=== PATIENT | male | born 1960 | race Caucasian/White ===

== ENCOUNTER 2020-01-01 08:46 | Emergency (ER) | payer SELFPAY ==
[~2020-01-01] VITALS: Ht 177.8 cm; Wt 86.4 kg
[2020-01-01 08:53] VITALS: Ht 177.8 cm; Wt 86.4 kg
[2020-01-01] MEDS ORDERED: LIPITOR20 MG (08:58)
[2020-01-01] MEDS ORDERED: COREG6.25 MG (08:58)
[2020-01-01] MEDS ORDERED: ASPIRIN81 MG (08:58)
[2020-01-01] MEDS ORDERED: FUROSEMIDE40 MG (08:59)
[2020-01-01] MEDS ORDERED: K-TAB10 MEQ (08:59)
[2020-01-01] MEDS ORDERED: GLUCOTROL 5 MG T5 MG (08:59)
[2020-01-01] MEDS ORDERED: LISINOPRIL2.5 MG (08:59)
[2020-01-01 09:43] LABS: BASOPHILS 0.3 % (0-2); EOSINOPHILS 0.4 % (0-7); HEMATOCRIT 44.4 % (42.0-54.0); HEMOGLOBIN 14.7 g/dL (13.5-17.5); IMMATURE GRANULOCYTES 0.4 % (0-5); LYMPHOCYTES 13.2 % (15-50); MCH 29.3 pg (26.0-34.0); MCHC 33.1 g/dL (31.0-37.0); MCV 88.6 fL (80.0-100.0); MEAN PLATELET VOLUME 9.8 fL (7.4-10.4); MONOCYTES 5.5 % (2-11); NEUTROPHILS 80.2 % (40-80); PLATELET COUNT 177 10x3/uL (130-400); RBC 5.01 10x6/uL (4.20-6.10); RDW 13.2 % (11.5-14.5); WBC 7.3 10x3/uL (4.8-10.8)
[2020-01-01 09:52] LABS: BILIRUBIN NEGATIVE (NEGATIVE); CALC OSMOLALITY 291 mosm/kg (275-300); CALCIUM 9.1 mg/dL (8.5-10.1); CARBON DIOXIDE 25.9 mmol/L (21.0-32.0); CHLORIDE - SERUM 101 mmol/L (98-107); GLUCOSE 374 mg/dL (74-106); KETONE NEGATIVE (NEGATIVE); NITRITE NEGATIVE (NEGATIVE); POTASSIUM - SERUM 4.4 mmol/L (3.5-5.1); SODIUM 137 mmol/L (136-145); UREA NITROGEN 21 mg/dL (7-18); UROBILINOGEN NORMAL mg/dL (< 2); eGFR NON AFRICAN AMERICAN 81 mL/min (90-120)
[2020-01-01 09:55] LABS: BACTERIA NONE SEEN HPF (NONE SEEN); EPITHELIAL CELLS RARE /hpf (0-5); WHITE CELLS - URINE RARE HPF (0-1)
[2020-01-01 10:13] LABS: ALBUMIN 3.4 g/dL (3.4-5.0); ALKALINE PHOSPHATASE 124 U/L (30-120); ALT (SGPT) 41 U/L (10-68); AMYLASE - SERUM 37 U/L (25-115); BILIRUBIN - TOTAL 1.49 mg/dL (0.2-1.3); LIPASE 149 U/L (73-393); PROTEIN - SERUM 6.5 g/dL (6.4-8.2); TROPONIN-I 0.059 ng/mL (0.000-0.060)
[2020-01-01 11:21] VITALS: BP 132/92
[2020-01-01] MEDS ORDERED: ALDACTONE50 MG PO (12:29)
[2020-01-01] MEDS ORDERED: BUMEX2 MG PO (12:29)
[2020-01-01] MEDS ORDERED: GLUCOTROL 5 MG T5 MG PO (12:29)
[2020-01-01] MEDS ORDERED: LISINOPRIL20 MG PO (12:29)
[2020-01-01] MEDS ORDERED: GLUCOPHAGE500 MG PO (12:29)
== END 2020-01-01 12:54 | disposition home or self-care (01) ==
LOC: D.ER 08:46
PROVIDERS: Emergency Medicine
DX: R18.8 Other ascites (principal); E11.65 Type 2 diabetes mellitus with hyperglycemia; R79.89 Other specified abnormal findings of blood chemistry; I11.0 Hypertensive heart disease with heart failure; I50.9 Heart failure, unspecified; Z79.84 Long term (current) use of oral hypoglycemic drugs; Z72.0 Tobacco use; R10.9 Unspecified abdominal pain

== ENCOUNTER 2020-07-29 11:49 | Inpatient (IN) | payer BC ==
[~2020-07-29] VITALS: Ht 177.8 cm; Wt 83.9 kg
[~2020-07-29 11:49] MED LIST: ALDACTONE50 MG PO; ASPIRIN81 MG; BUMEX2 MG PO; COREG6.25 MG; FUROSEMIDE40 MG; GLUCOPHAGE500 MG PO; GLUCOTROL 5 MG T5 MG; GLUCOTROL 5 MG T5 MG PO; K-TAB10 MEQ; LIPITOR20 MG; LISINOPRIL2.5 MG; LISINOPRIL20 MG PO
--- NOTE | 2020-07-29 12:15 | NUR ---
NTG SL NOT GIVEN. PT DENIES CHEST PAIN. BP WNL.
[2020-07-29 12:30] VITALS: BP 124/91
[2020-07-29 12:47] LABS: ALBUMIN 3.3 g/dL (3.4-5.0); ALKALINE PHOSPHATASE 156 U/L (30-120); ALT (SGPT) 54 U/L (10-68); BILIRUBIN - TOTAL 1.34 mg/dL (0.2-1.3); C-REACTIVE PROTEIN < 0.2 mg/dL (0.0-0.9); CALC OSMOLALITY 294 mosm/kg (275-300); CALCIUM 9.4 mg/dL (8.5-10.1); CARBON DIOXIDE 28.9 mmol/L (21.0-32.0); CHLORIDE - SERUM 99 mmol/L (98-107); CREATININE - SERUM 1.2 mg/dL (0.6-1.3); LIPASE 117 U/L (73-393); POTASSIUM - SERUM 4.7 mmol/L (3.5-5.1); PRO BNP 7866 pg/mL (0-125); PROTEIN - SERUM 6.4 g/dL (6.4-8.2); SODIUM 136 mmol/L (136-145); THYROID STIMULATING HORMONE 0.21 uIU/mL (0.36-3.74); UREA NITROGEN 25 mg/dL (7-18); eGFR NON AFRICAN AMERICAN 66 mL/min (90-120)
[2020-07-29 12:50] LABS: GLUCOSE 439 mg/dL (74-106); TROPONIN-I 0.066 ng/mL (0.000-0.060)
--- NOTE | 2020-07-29 12:56 | NUR ---
URINE SPECIMEN TO LAB.
[2020-07-29 13:26] LABS: BILIRUBIN NEGATIVE (NEGATIVE); KETONE NEGATIVE (NEGATIVE); NITRITE NEGATIVE (NEGATIVE); UROBILINOGEN NORMAL mg/dL (< 2)
[2020-07-29 13:27] LABS: BACTERIA FEW HPF (NONE SEEN); SQUAMOUS EPITHELIAL 0-5 HPF (0-4); WHITE CELLS - URINE RARE HPF (0-1)
[2020-07-29 13:54] LABS: BASOPHILS 0.1 % (0-2); EOSINOPHILS 0.4 % (0-7); HEMATOCRIT 44.2 % (42.0-54.0); HEMOGLOBIN 14.7 g/dL (13.5-17.5); IMMATURE GRANULOCYTES 0.3 % (0-5); LYMPHOCYTE ABS# 0.87 10x3/uL (1.32-3.57); LYMPHOCYTES 12.3 % (15-50); MCH 29.5 pg (26.0-34.0); MCHC 33.3 g/dL (31.0-37.0); MCV 88.8 fL (80.0-100.0); MEAN PLATELET VOLUME 10.2 fL (7.4-10.4); MONOCYTES 6.2 % (2-11); NEUTROPHIL ABS# 5.72 10x3/uL (1.78-5.38); NEUTROPHILS 80.7 % (40-80); PLATELET COUNT 211 10x3/uL (130-400); RBC 4.98 10x6/uL (4.20-6.10); RDW 13.6 % (11.5-14.5); WBC 7.1 10x3/uL (4.8-10.8)
[2020-07-29 14:40] VITALS: BP 116/74; BMI 26.6
--- NOTE | 2020-07-29 15:00 | NUR ---
PT ARRIVED VIA WHEELCHAIR AT THIS TIME TO RM 2121. PT AMBULATORY TO BED, RR EVEN NON LABORED, O2 IN PLACE AT 2L NEEDED. PT AWAKE AND ALERT, ANSWERS QUUESTIONS APPROP. PT ORIENTED TO ROOM, CALL LIGHT, BATHROOM. PT STATES UNDERSTANDING, DENIES ANY QUESTIONS. HOME MED LIST REVIEWED, ALTHOUGHT PT STATES HE HAS NOT TAKEN MEDICATIONS SINCE FEBRUARY OF 2020. NO NEEDS VOICED BY PT. CLWR.
[2020-07-29 15:25] LABS: CKMB 5.7 U/L (0.0-3.6); CREATINE KINASE 109 UL (21-232); TROPONIN-I 0.055 ng/mL (0.000-0.060)
--- NOTE | 2020-07-29 19:22 | NUR ---
RECIEVED LAYING IN BED WITH HOB ELEVATED. ALERT ANAD ORIENTED X4. UP AD ROSEANN TO B/R. TELEMETRY IN PLACE. DENIES ANY NEEDS AT THIS TIME.
[2020-07-29 20:46] LABS: CKMB 4.2 U/L (0.0-3.6); CREATINE KINASE 81 UL (21-232)
[2020-07-29 20:48] LABS: TROPONIN-I 0.075 ng/mL (0.000-0.060)
[2020-07-29 21:00] VITALS: BP 104/70
[2020-07-30] VITALS: BP 112/81
[2020-07-30 02:51] LABS: BASOPHILS 0.6 % (0-2); EOSINOPHILS 1.3 % (0-7); HEMATOCRIT 40.7 % (42.0-54.0); HEMOGLOBIN 13.5 g/dL (13.5-17.5); MCH 28.9 pg (26.0-34.0); MCHC 33.2 g/dL (31.0-37.0); MCV 87.2 fL (80.0-100.0); MEAN PLATELET VOLUME 7.3 fL (7.4-10.4); MONOCYTES 7.7 % (2-11); NEUTROPHILS 72.4 % (40-80); PLATELET COUNT 199 10x3/uL (130-400); RBC 4.66 10x6/uL (4.20-6.10); RDW 13.9 % (11.5-14.5)
[2020-07-30 02:54] LABS: WBC 5.1 10x3/uL (4.8-10.8)
[2020-07-30 03:24] LABS: ALBUMIN 2.9 g/dL (3.4-5.0); ALKALINE PHOSPHATASE 124 U/L (30-120); ALT (SGPT) 45 U/L (10-68); BILIRUBIN - TOTAL 0.83 mg/dL (0.2-1.3); CALCIUM 8.2 mg/dL (8.5-10.1); CARBON DIOXIDE 29.8 mmol/L (21.0-32.0); CHLORIDE - SERUM 99 mmol/L (98-107); CKMB 3.4 U/L (0.0-3.6); CREATINE KINASE 73 UL (21-232); CREATININE - SERUM 1.2 mg/dL (0.6-1.3); MAGNESIUM - SERUM 1.7 mg/dL (1.8-2.4); PROTEIN - SERUM 6.1 g/dL (6.4-8.2); SODIUM 135 mmol/L (136-145); TROPONIN-I 0.057 ng/mL (0.000-0.060); UREA NITROGEN 22 mg/dL (7-18); eGFR NON AFRICAN AMERICAN 66 mL/min (90-120)
[2020-07-30 03:25] LABS: CALC OSMOLALITY 278 mosm/kg (275-300); GLUCOSE 211 mg/dL (74-106); POTASSIUM - SERUM 3.8 mmol/L (3.5-5.1)
[2020-07-30 04:00] VITALS: BP 101/68
[2020-07-30 08:00] VITALS: BP 105/72
--- NOTE | 2020-07-30 08:09 | NUR ---
PT LYING IN BED WITH HOB RAISED EATING BREAKFAST TRAY. PT AWAKE AND ALERT, RR EVEN NON LABORED, O2 IN PLACE VIA NC. PT ANSWERS QUESTIONS APPROP. NO PAIN REPORTED. AM MEDS GIVEN PER EMAR. TRACE EDEMA NOTED TO BLE, IMRPOVEMENT NOTED FROM YESTERDAY. PT DENIES ANY NEEDS AT THIS TIME. CLWR.
--- NOTE | 2020-07-30 12:46 | NUR ---
TELE D/C'D PER MD ORDER. PT REQUEST SET UP FOR SHOWER. BEDSPREAD CUTTER GAVE PT TOWELS AND COVERED IV. PT INDEPENDENT FOR SELF CARE. NO NEEDS VOICED. CLWR.
[2020-07-30 13:29] VITALS: Ht 177.8 cm; Wt 83.9 kg
[2020-07-30 16:00] VITALS: BP 170/79
--- NOTE | 2020-07-30 19:34 | NUR ---
RECIEVED UP IN BED WITH EYES CLOSED. AROUSES TO VERBAL STIMULI. ALERT AND ORIENTED X4. UP AD ROSEANN TO B/R. DENIES ANY NEEDS AT THIS TIME.
[2020-07-30 21:00] VITALS: BP 106/70
[2020-07-31] VITALS: BP 107/76
[2020-07-31 04:00] VITALS: BP 127/88
[2020-07-31 06:20] LABS: HEMOGLOBIN 14.2 g/dL (13.5-17.5); LYMPHOCYTES 17.8 % (15-50); MCH 28.9 pg (26.0-34.0); MCV 87.5 fL (80.0-100.0); MEAN PLATELET VOLUME 7.5 fL (7.4-10.4); MONOCYTES 10.4 % (2-11); NEUTROPHILS 69.8 % (40-80); PLATELET COUNT 214 10x3/uL (130-400); RBC 4.92 10x6/uL (4.20-6.10); RDW 13.7 % (11.5-14.5); WBC 5.3 10x3/uL (4.8-10.8)
[2020-07-31 06:38] LABS: ALBUMIN 2.9 g/dL (3.4-5.0); ANION GAP 10.5 mmol/L (8-16); BILIRUBIN - TOTAL 0.84 mg/dL (0.2-1.3); CALCIUM 8.7 mg/dL (8.5-10.1); CARBON DIOXIDE 30.3 mmol/L (21.0-32.0); CREATININE - SERUM 1.2 mg/dL (0.6-1.3); MAGNESIUM - SERUM 1.9 mg/dL (1.8-2.4); POTASSIUM - SERUM 3.8 mmol/L (3.5-5.1); PROTEIN - SERUM 5.8 g/dL (6.4-8.2)
[2020-07-31 08:40] VITALS: BP 120/82
--- NOTE | 2020-07-31 10:40 | NUR ---
DISCUSSED WITH PT REGARDING DISCHARGE. HE STATES HE WILL BE HIS OWN RIDE. WALKING TO VENDING FOR SNACK AT PRESENT.
--- NOTE | 2020-07-31 12:51 | NUR ---
PT BEING DISCHARGED. IV OUT, PAPERS SIGNED. DRIVING SELF HOME.
--- NOTE | 2020-07-31 14:10 | MORECARE ---
CASE MANAGEMENT DISCHARGE SUMMARY PATIENT: JULIANA CROWDER UNIT: [id number] ADM DATE: 07/29/20 AGE: 60 : 62 SEX: M ROOM/BED: D.2120 AUTHOR: SHEILA SANABRIA PHYSICIAN: REFERRING PHYSICIAN: KYUNG OLIVERA MD DATE OF SERVICE: 07/31/20 Case Management Discharge Planning Summary DCP REVIEW SUMMARY ANTICIPATED D/C DATE: 07/31/2020 EXPECTED LOS : 2 CASE STATUS: DCP Initiated INITIAL REVIEW: 07/29/2020 INITIAL REVIEWER: Jeniffer Salcedo FINAL DISCHARGE DISPOSITION: 01 : Home or Self Care (Routine Discharge) FINAL REVIEWER: FINAL REVIEW DATE: DCP Focus Questions & Answers DCP Screen QUESTION: ANSWER High Risk Factors: : None Walking limitation: Patient stated self rated walking limitation present? : No Age: : 45 - 64 Prior living environment: : Lives with others Disability ranking: : Grade 1: No significant disability DCP Evaluation QUESTION: ANSWER Patient's ability to cope with chronic illness : d. No chronic illness Would patient like to participate in any Care Coordination programs (if applicable): : Not applicable Mental health screen: : No mental health history DCP Re-evaluation QUESTION: ANSWER Would patient like to participate in any Care Coordination programs (if applicable): : Not applicable PATIENT: JULIANA CROWDER ENCOUNTER: [id number] MEDICAL RECORD#: [id number] ADMISSION DATE: 07/29/2020 DISCHARGE DATE: 07/31/2020 ATTENDING MD: KYUNG HOWELL : AGE: 60 MARITAL STATUS: S DC PLAN ID: [id number] FACILITY: [facility] PRINTED ON: 07/31/20 14:10 CT All edits/amendments must be made on the electronic document DICTATION DATE: 07/31/201409 PROFILER HAND: DM 07/31/20 141 RPT#: [id number] DC DATE:07/31/20 STATUS: DIS IN [facility] [address] [place] [address] END OF REPORT
--- NOTE | 2020-07-31 14:24 | MORECARE ---
CASE MANAGEMENT DISCHARGE SUMMARY PATIENT: JULIANA CROWDER UNIT: [id number] ADM DATE: 07/29/20 AGE: 60 : 62 SEX: M ROOM/BED: D.2123 AUTHOR: ELLY,DOC PHYSICIAN: REFERRING PHYSICIAN: KYUNG OLIVERA MD DATE OF SERVICE: 07/31/20 Case Management Discharge Planning Summary COMMENTS ENTERED DATE: 07/31/20 14:11 CT COMMENT TYPE: Discharge Planning REVIEWER: Jeniffer Salcedo CM met with patient to complete discharge planning assessment and offer availability of needed services. Patient states that he lives independently at home with his son prior to admission. Patient verified that his home environment is safe and has electricity and running water. Patient denies need for transportation and states that he does have funds for services and medications if needed. PCP is Dr. Perdomo and patient uses [facility]. CM offered and discussed home health, rehab services, and need for any medical equipment. Patient did not express need for offered services at this time. Patient verbalized understanding of signed form, DOM signed for refusal of additional services or needs at this time, and placed on chart. DCP REVIEW SUMMARY ANTICIPATED D/C DATE: 07/31/2020 EXPECTED LOS : 2 CASE STATUS: DCP Initiated INITIAL REVIEW: 07/29/2020 INITIAL REVIEWER: Jeniffer Salcedo FINAL DISCHARGE DISPOSITION: 01 : Home or Self Care (Routine Discharge) FINAL REVIEWER: FINAL REVIEW DATE: [facility] Focus Questions & Answers DCP Screen QUESTION: ANSWER High Risk Factors: : None Walking limitation: Patient stated self rated walking limitation present? : No Age: : 45 - 64 Prior living environment: : Lives with others Disability ranking: : Grade 1: No significant disability DCP Evaluation QUESTION: ANSWER Patient and/or caregiver agree upon recommended discharge plan? : Yes Family / Caregiver's ability to cope with chronic illness: : a. Adequate (ability to meet patient's medical needs, ensures patient attends medical appts.) Patient's current cognitive status: : *Oriented to person, place, situation, time and present Patient's ability to cope with chronic illness : a. Adequate (0-3 ED visits in 6 mos., adequate financial resources, attends scheduled appts.) Does the patient have the ability to pay for or attain post discharge needs / services? : N/A Functional screen assessment: : Basic needs can adequately be met by self Family / Caregiver's ability to cope with chronic illness: : a. Adequate (ability to meet patient's medical needs, ensures patient attends medical appts.) Physical Status: : Independent with ADL's Equipment needed for post hospitalization: : None Is there a likelihood that the patient will require additional services to return to the preadmission environment? : N/A Living Arrangements: : Home with others Results of this evaluation have been discussed with: : Patient Patient with capacity for self-care or can be cared for in same environment as prior to hospitalization? 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 : N/A Pharmacy name(s): : [facility] Planned post hospital services covered by insurance plan? : N/A Does Patient have transportation to get home and to follow-up medical appointments when discharged from the hospital? : Yes Would patient like to participate in any Care Coordination programs (if applicable): : Not applicable Does the patient have electricity at home? : Yes Does the patient have running water in their house? : Yes Equipment in use: : None Mental health screen: : No mental health history Psychosocial status: : Independent adult (18-64) Abuse/Neglect: : None Resources / Services in place: : None DCP Re-evaluation QUESTION: ANSWER Would patient like to participate in any Care Coordination programs (if applicable): : Not applicable PATIENT: JULIANA CROWDER ENCOUNTER: [id number] MEDICAL RECORD#: [id number] ADMISSION DATE: 07/29/2020 DISCHARGE DATE: 07/31/2020 ATTENDING MD: KYUNG HOWELL : AGE: 60 MARITAL STATUS: S DC PLAN ID: [id number] FACILITY: [facility] PRINTED ON: 07/31/20 14:24 CT All edits/amendments must be made on the electronic document DICTATION DATE: 07/31/201423 FIRMWARE ARCHITECT: PEYTON 07/31/201423 RPT#: [id number] DC DATE:07/31/20 STATUS: DIS IN [facility] [address] [place] [address] END OF REPORT
--- NOTE | 2020-07-31 19:38 | MORECARE ---
CASE MANAGEMENT DISCHARGE SUMMARY PATIENT: JULIANA CROWDER UNIT: [id number] ADM DATE: 07/29/20 AGE: 60 : 62 SEX: M ROOM/BED: D.2123 AUTHOR: ELLY,DOC PHYSICIAN: REFERRING PHYSICIAN: KYUNG OLIVERA MD DATE OF SERVICE: 07/31/20 Case Management Discharge Planning Summary COMMENTS ENTERED DATE: 07/31/20 14:11 CT COMMENT TYPE: Discharge Planning REVIEWER: Jeniffer Salcedo CM met with patient to complete discharge planning assessment and offer availability of needed services. Patient states that he lives independently at home with his son prior to admission. Patient verified that his home environment is safe and has electricity and running water. Patient denies need for transportation and states that he does have funds for services and medications if needed. PCP is Dr. Perdomo and patient uses [facility]. CM offered and discussed home health, rehab services, and need for any medical equipment. Patient did not express need for offered services at this time. Patient verbalized understanding of signed form, DOM signed for refusal of additional services or needs at this time, and placed on chart. DCP REVIEW SUMMARY ANTICIPATED D/C DATE: 07/31/2020 EXPECTED LOS : 2 CASE STATUS: DCP Initiated INITIAL REVIEW: 07/29/2020 INITIAL REVIEWER: Jeniffer Salcedo FINAL DISCHARGE DISPOSITION: 01 : Home or Self Care (Routine Discharge) FINAL REVIEWER: FINAL REVIEW DATE: [facility] Focus Questions & Answers DCP Screen QUESTION: ANSWER High Risk Factors: : None Walking limitation: Patient stated self rated walking limitation present? : No Age: : 45 - 64 Prior living environment: : Lives with others Disability ranking: : Grade 1: No significant disability DCP Evaluation QUESTION: ANSWER Patient and/or caregiver agree upon recommended discharge plan? : Yes Family / Caregiver's ability to cope with chronic illness: : a. Adequate (ability to meet patient's medical needs, ensures patient attends medical appts.) Patient's current cognitive status: : *Oriented to person, place, situation, time and present Patient's ability to cope with chronic illness : a. Adequate (0-3 ED visits in 6 mos., adequate financial resources, attends scheduled appts.) Does the patient have the ability to pay for or attain post discharge needs / services? : N/A Functional screen assessment: : Basic needs can adequately be met by self Family / Caregiver's ability to cope with chronic illness: : a. Adequate (ability to meet patient's medical needs, ensures patient attends medical appts.) Physical Status: : Independent with ADL's Equipment needed for post hospitalization: : None Is there a likelihood that the patient will require additional services to return to the preadmission environment? : N/A Living Arrangements: : Home with others Results of this evaluation have been discussed with: : Patient Patient with capacity for self-care or can be cared for in same environment as prior to hospitalization? 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 : N/A Pharmacy name(s): : [facility] Planned post hospital services covered by insurance plan? : N/A Does Patient have transportation to get home and to follow-up medical appointments when discharged from the hospital? : Yes Would patient like to participate in any Care Coordination programs (if applicable): : Not applicable Does the patient have electricity at home? : Yes Does the patient have running water in their house? : Yes Equipment in use: : None Mental health screen: : No mental health history Psychosocial status: : Independent adult (18-64) Abuse/Neglect: : None Resources / Services in place: : None DCP Re-evaluation QUESTION: ANSWER Would patient like to participate in any Care Coordination programs (if applicable): : Not applicable PATIENT: JULIANA CROWDER ENCOUNTER: [id number] MEDICAL RECORD#: [id number] ADMISSION DATE: 07/29/2020 DISCHARGE DATE: 07/31/2020 ATTENDING MD: KYUNG HOWELL : AGE: 60 MARITAL STATUS: S DC PLAN ID: [id number] FACILITY: [facility] PRINTED ON: 07/31/20 19:38 CT All edits/amendments must be made on the electronic document DICTATION DATE: 07/31/201937 VENDOR MANAGEMENT SPECIALIST: PEYTON 07/31/201937 RPT#: [id number] DC DATE:07/31/20 STATUS: DIS IN [facility] [address] [place] [address] END OF REPORT
--- NOTE | 2020-08-04 09:26 | EC ---
PATIENT:JULIANA CROWDER DATE OF SERVICE: 07/29/20 SEX: M MEDICAL RECORD: [id number] DATE OF : 62 LOCATION:D.M2 D.212 AGE OF PATIENT: 60 ADMISSION DATE: 07/29/20 REFERRING PHYSICIAN: INTERPRETING PHYSICIAN: BRIANNE MUÑOZ MD ECHOCARDIOGRAM REPORT ECHO CHARGES 4 ECHO COMPLETE Date: 07/30/20 CLINICAL DIAGNOSIS: CHF ECHOCARDIOGRAPHIC MEASUREMENTS (adult normal given) AC root (d.<3.7cm) 3.2 cm LV Septum d (<1.2 cm> 1.3 cm Valve Excursion 1.6 cm LV Septum (systole) 1.6 cm Left Atria (s.<4.0cm> 4.7 cm LVPW d(<1.2cm) 0.8 cm RV (d.<2.3cm) 3.8 cm LVPW (sytole) 1.1 cm LV diastole(<5.6CM) 6.6 cm MV E-F(>70mm/sec) cm LV systole 5.8 cm LVOT Diameter 2.2 cm MV exc.(>10mm) 1.4 cm Est.ejection fraction (50-75%) % DOPPLER: LVIT cm/sec A 27 cm/sec E 81 cm/sec LA cm/sec RVSP 38 mmHg LVOT 83 cm/sec AOP1/2T m/s Asc. Ao 106 cm/sec RVOT 52 cm/sec RA cm/sec PA 47 cm/sec AV Gradient Peak 4.5 mmHg AV Mean 2.7 mmHg AV Area 2.6 cm MV Gradient Peak 2.9 mmHg MV Mean 1.2 mmHg MV Area cm COMMENTS: Comparison Shopper: [facility] Devil Tender: 2 Dr. Reyes TAPE# Pericardial Effusion Y DATE OF SERVICE: Adequate 2D, color-flow imaging, spectral Doppler, and M-Mode LVH is present. LV internal dimensions are dilated. LV is mildly globally hypo with EF mildly reduced at 40% to 45%. Aortic valve is tricuspid. No evidence of stenosis by Doppler interrogation. Left atrium is dilated at 4.7 cm. Mitral valve shows no prolapse. Mild MR. Right side chambers are grossly normal. Mild TR. ECHOCARDIOGRAM REPORT [id number] JULIANA CROWDER TRANSINT:[id number] Voice Confirmation ID: [id number] DOCUMENT ID: [id number] BRIANNE MUÑOZ MD at 0926 CC: [id number] DICTATION DATE: 08/01/20 1121 MEDICAL RESIDENT: 08/01/20 1304 DIS IN 07/31/20 [id number] [place] [address]
== END 2020-07-31 12:53 | disposition home or self-care (01) | DRG 282 ==
LOC: D.ER 11:49 → D.M2 14:11
PROVIDERS: Family Medicine; ADMIT Family Medicine Adult Medicine; ATTEND Family Medicine Adult Medicine
DX: I11.0 Hypertensive heart disease with heart failure (principal); I21.A1 Myocardial infarction type 2; I50.9 Heart failure, unspecified; E11.65 Type 2 diabetes mellitus with hyperglycemia; J44.9 Chronic obstructive pulmonary disease, unspecified; E78.5 Hyperlipidemia, unspecified